=== PATIENT | female | born 1995 | race African-American/Black ===

== ENCOUNTER 2016-08-08 00:43 | Inpatient (IN) | payer OTHER ==
[2016-08-08] VITALS (8 sets, daily range): BP systolic 104–125; BP diastolic 59–73
[~2016-08-08] VITALS: Ht 160 cm; Wt 91.0 kg
[~2016-08-08 00:43] MED LIST: ACET50TA PO; MOTR200T44 PO; PREN200C2 PO
[2016-08-08] MEDS ORDERED: OXYTOCIN 30 UNITS IN 0.9% NaCl 500ML IV BAG (J2590) As Ordered ONE (01:38)
[2016-08-08] MEDS ORDERED: LACTATED RINGER'S 1000 ML IV STA (01:41)
--- NOTE | 2016-08-08 01:49 | HPEPDOC ---
Obstetrical History & Physical General Date of Admission August 08, 2016 at 01:28 History of Present Illness 20 y/o at 39+1 for reg painful ctx's. Pos FM. No VB or LOF. Uncomplicated preg. Chief Complaint: Contractions, term Information Provided By: Patient Care Care: Good Care Dating Final EDC by: LMP, 1st trimester (US) Past Medical History Past Obstetrical History : Past Obstetrical History: Multigravida Type of Delivery: Spontaneous Vaginal Del. ( almost 9 lbs 2014 after IOL for cholesstasis) PRACTICE MANAGERS History: No pertinent history Past Medical History Medical History denies Surgical History: Denies/None Family History Significant Family History: No pertinent family hx Social History Marital Status: Family situation: Spouse/partner home Psychosocial History: No pertinent psych hx * Smoker: non-smoker Alcohol: Denies Drugs: denies Abuse Violence Screening Have you been hit/kicked/slapp: No Have you been sexually assault: No Imunizations Tdap status: declined Influenza Status: declined Allergies Coded Allergies: No Known Allergies (Unverified , 01/16/15) Medications Scheduled Multivitamins/ ( Dha) 200 Mg Cap, 200 MG PO DAILY Scheduled PRN Acetaminophen (Mapap) 500 Mg Tab, 1,000 MG PO Q6HP PRN for MILD PAIN (PS 1-4) Ibuprofen (Motrin Ib) 200 Mg Tab, 800 MG PO Q8HP PRN for MODERATE PAIN (PS 5-7) Physical Examination Physical Examination GENERAL: Alert and oriented times three. ABDOMEN: Gravid and non-tender to touch. FETUS: Is vertex (VTX) by sterile vaginal examination, C/8/0. EXTREMITIES: No edema. Vital Signs/I&O Vital Signs Date Time Temp Pulse Resp B/P (MAP) Pulse Ox O2 Delivery O2 Flow Rate FiO2 08/08/16 00:58 98.3 97 18 117/69 (85) Laboratory Data [facility] Laboratory Tests 2 08/08/16 00:50: Serology Scanned Report Hepatitis B Testing Urine Culture: No Growth Pertinent Laboratoy Data Blood Type: O+ RBC Antibody Screen: Negative HIV: Negative Hepatitis B: Negative Hepatitis C: Unknown Rapid Plasma Reagin: Nonreactive Rubella: Immune Varicella: Immune Chlamydia/Gonorrhea: Negative Group B Streptococcus: Negative Quad Screen Test: Negative Cystic Fibrosis: Negative Glucose Tolerance Test: 134 Anatomy Ultrasound Placenta Location: Posterior Normal Anatomy: Yes Vaginal Examination Dilation: 8 cm Effacement: 80+% Station: 0 Cervical Position: Posterior Presentation: Cephalic presentation Assessment Variability: Moderate Accelerations: Positive Decelerations: None Tocometer Contractions: Yes Frequency: regular Duration: greater than 60 seconds Strength: palpated as strong Assessment/Plan Assessment Active labor. Admit Plan Admit and orient. Business Solution Analyst and consent. Group B Streptococcus (GBS) negative Labs and intravenous (IV) per unit protocol. Counseled on Pitocin and induction of labor (IOL). Lactated Ringers (LR): Bolus 500 mL, then 125/hr Anticipate normal spontaneous delivery () C-S as appropriate. Sessions SESSIONS,ANA PAULA Abraham MD August 08, 2016 01:49
[2016-08-08 02:08] LABS: MEAN CORPUSCULAR HEMOGLOBIN 33.3 pg (27.0-33.0); MEAN CORPUSCULAR HGB CONC 33.9 g/dl (32.0-36.5); MEAN CORPUSCULAR VOLUME 98.1 fl (80.0-96.0); RED CELL DISTRIBUTION WIDTH 13.2 % (11.5-14.5)
[2016-08-08] MEDS ORDERED: OXYTOCIN DRIP 30 UNITS in APPROPRIATE DILUENT 1 EA IV SCH (02:20)
--- NOTE | 2016-08-08 02:25 | DNPDOC ---
[facility] Delivery Note Delivery Note DATE OF DELIVERY: August 08, 2016 at 01:28 PREDELIVERY DIAGNOSIS: 39-1/7 weeks' gestation and labor. POST DELIVERY DIAGNOSIS: Delivered. PROCEDURE: Spontaneous vaginal delivery METALLURGICAL LABORATORY ASSISTANT: Dr. Lowe ANESTHESIA: none ESTIMATED BLOOD LOSS: 200 mL. FINDINGS: male , Score 9/10 DELIVERY SUMMARY: SROM on her own and had a strong desire to push. 2 pushes and del'd the vtx, no delay of either shoulder. Infant in good shape with spont cry and good tone. On abd. Cord C/C by FOB. Cord blood. Placenta intact with slight traction. Fundus massaged and firm, pit running. No lacs. Uncomplicated. JOHANNE,ANA PAULA Abraham MD August 08, 2016 02:25
[2016-08-08] MEDS ORDERED: RHOGAM 300 MCG (1500 IU) INJ (J2790) IM SCH (02:30)
[2016-08-08] MEDS ORDERED: MEASLES,MUMPS,RUBELLA VACCINE INJ (MMR-II) (90707) SC SCH (02:30)
[2016-08-08] MEDS ORDERED: METOCLOPRAMIDE INJ 10MG/2ML VIAL (J2765) IV PRN (02:30)
[2016-08-08] MEDS ORDERED: DIBUCAINE 1% OINTMENT 30GM TOP PRN (02:30)
[2016-08-08] MEDS: IBUPROFEN 800 MG TAB PO PRN ×3 (02:58→21:11)
[2016-08-08] MEDS: ACETAMINOPHEN TAB 650MG DOSE (2X325MG) PO PRN ×3 (02:58→13:08)
[2016-08-08] MEDS: PRENATAL VITAMIN TAB PO SCH (08:01)
[2016-08-08] MEDS: DOCUSATE SODIUM 100 MG CAP PO SCH ×2 (08:01→21:12)
[2016-08-09 05:41] VITALS: BP 117/70
[2016-08-09] MEDS: DOCUSATE SODIUM 100 MG CAP PO SCH (07:40)
[2016-08-09] MEDS: PRENATAL VITAMIN TAB PO SCH (07:40)
[2016-08-09] MEDS: ACETAMINOPHEN TAB 650MG DOSE (2X325MG) PO PRN (07:40)
[2016-08-09] MEDS: IBUPROFEN 800 MG TAB PO PRN (07:41)
[2016-08-09] MEDS ORDERED: COLA100C3 PO (09:35)
== END 2016-08-09 12:30 | disposition home or self-care (01) | DRG 775 ==
LOC: M LDO 00:43 → M LDI 01:28 → M OBS 04:30
PROVIDERS: ADMIT Obstetrics & Gynecology; ATTEND Obstetrics & Gynecology
PROC: 10E0XZZ Delivery of Products of Conception, External Approach (ICD-10-PCS; principal; 2016-08-08)
DX: O80 Encounter for full-term uncomplicated delivery (principal); Z37.0 Single live birth; Z3A.39 39 weeks gestation of pregnancy

== ENCOUNTER 2016-08-22 15:29 | Emergency (ER) | payer OTHER ==
[~2016-08-22] VITALS: Ht 160 cm; Wt 79.4 kg
[~2016-08-22 15:29] MED LIST changes: +COLA100C3 PO
[2016-08-22] MEDS ORDERED: CIPR500T89 PO (16:59)
[2016-08-22] MEDS ORDERED: CIPROFLOXACIN 500 MG TAB PO ONE (17:00)
[2016-08-22 17:07] VITALS: BP 102/55
== END 2016-08-22 17:19 | disposition home or self-care (01) ==
LOC: M ED 16:37
DX: O91.12 Abscess of breast associated with the puerperium (principal); F17.210 Nicotine dependence, cigarettes, uncomplicated

== ENCOUNTER 2016-09-16 03:14 | Emergency (ER) | payer OTHER ==
[~2016-09-16 03:14] MED LIST changes: +CIPR-249 PO; -COLA100C3 PO; +COLA100C5 PO; +PREN200C PO; -PREN200C2 PO
[2016-09-16] MEDS ORDERED: KETOROLAC TROMETHAMINE 10 MG TAB PO ONE (04:15)
[2016-09-16] MEDS ORDERED: KETO10TAB PO (04:27)
[2016-09-16 04:36] VITALS: BP 99/61
--- NOTE | 2016-09-16 07:41 | REP ---
Clinical: Cough and shortness of breath . Comparison: None . Technique: PA and lateral. Findings: The mediastinum and cardiac silhouette are normal. The lung chaidez are clear and without acute consolidation, effusion, or pneumothorax. The skeletal structures are intact and normal. Impression: 1. No acute cardiopulmonary process. Signed by Ruiz Landaverde MD 09/16/2016 07:33 A
== END 2016-09-16 04:40 | disposition home or self-care (01) ==
LOC: M ED 03:14
DX: R07.89 Other chest pain (principal); F17.200 Nicotine dependence, unspecified, uncomplicated